=== PATIENT | female | born 2000 | race Two or more races ===

== ENCOUNTER 2024-03-24 20:28 | Emergency (ER) | payer OTHER ==
[~2024-03-24] VITALS: Ht 172.7 cm; Wt 96.6 kg
[2024-03-24] MEDS ORDERED: PRENATABS RX T1 EACH (20:46)
[2024-03-24] MEDS ORDERED: TERCONAZOLE20 GM VAG (21:16)
[2024-03-24] MEDS ORDERED: FLUCONAZOLE150 MG PO (21:16)
== END 2024-03-24 21:36 | disposition home or self-care (01) ==
LOC: ER 20:30
DX: O23.591 Infection of other part of genital tract in pregnancy, first trimester (principal); Z3A.08 8 weeks gestation of pregnancy

== ENCOUNTER 2024-04-25 14:58 | Outpatient (CLI) | payer OTHER ==
[~2024-04-25 14:58] MED LIST: FLUCONAZOLE150 MG PO; PRENATABS RX T1 EACH; TERCONAZOLE20 GM VAG
== END 2024-04-25 14:59 | disposition home or self-care (01) ==
LOC: LAB 14:58
PROVIDERS: ATTEND Specialist
DX: L02.91 Cutaneous abscess, unspecified (principal)

== ENCOUNTER 2024-05-24 13:40 | Outpatient (CLI) | payer OTHER | END 2024-05-24 13:41 | disposition home or self-care (01) | LOC: LAB 13:40 | PROVIDERS: ATTEND Specialist | DX: L02.91 Cutaneous abscess, unspecified (principal) ==

== ENCOUNTER → 2024-06-23 14:27 | Outpatient (CLI) | payer OTHER | END | disposition home or self-care (01) | LOC: PRENATAL 14:27 | PROVIDERS: ATTEND Obstetrics & Gynecology Maternal & Fetal Medicine | DX: O44.00 Complete placenta previa NOS or without hemorrhage, unspecified trimester (principal); O10.019 Pre-existing essential hypertension complicating pregnancy, unspecified trimester; O24.419 Gestational diabetes mellitus in pregnancy, unspecified control; O34.219 Maternal care for unspecified type scar from previous cesarean delivery; Z3A.21 21 weeks gestation of pregnancy ==

== ENCOUNTER 2024-08-07 11:13 | Outpatient (CLI) | payer OTHER | END 2024-08-07 11:14 | disposition home or self-care (01) | LOC: PRENATAL 11:13 | PROVIDERS: ATTEND Obstetrics & Gynecology Maternal & Fetal Medicine | DX: O44.00 Complete placenta previa NOS or without hemorrhage, unspecified trimester (principal); O10.019 Pre-existing essential hypertension complicating pregnancy, unspecified trimester; O24.419 Gestational diabetes mellitus in pregnancy, unspecified control; O34.219 Maternal care for unspecified type scar from previous cesarean delivery; Z3A.29 29 weeks gestation of pregnancy ==

== ENCOUNTER 2024-09-06 14:42 | Outpatient (CLI) | payer OTHER | END 2024-09-06 14:43 | disposition home or self-care (01) | LOC: PRENATAL 14:42 | PROVIDERS: ATTEND Obstetrics & Gynecology Maternal & Fetal Medicine | DX: O44.00 Complete placenta previa NOS or without hemorrhage, unspecified trimester (principal); O10.019 Pre-existing essential hypertension complicating pregnancy, unspecified trimester; O24.419 Gestational diabetes mellitus in pregnancy, unspecified control; O34.219 Maternal care for unspecified type scar from previous cesarean delivery; Z3A.34 34 weeks gestation of pregnancy ==

== ENCOUNTER → 2024-10-04 14:47 | Outpatient (CLI) | payer OTHER | END | disposition home or self-care (01) | LOC: PRENATAL 14:47 | PROVIDERS: ATTEND Obstetrics & Gynecology Maternal & Fetal Medicine | DX: O44.00 Complete placenta previa NOS or without hemorrhage, unspecified trimester (principal); O10.019 Pre-existing essential hypertension complicating pregnancy, unspecified trimester; O24.419 Gestational diabetes mellitus in pregnancy, unspecified control; O34.219 Maternal care for unspecified type scar from previous cesarean delivery; Z3A.37 37 weeks gestation of pregnancy ==

== ENCOUNTER 2024-10-16 10:15 | Inpatient (IN) | payer OTHER ==
[~2024-10-16] VITALS: Ht 172.7 cm; Wt 4.1 kg
[2024-10-16 13:12] LABS: HEMATOCRIT 32.9 % (36.0-45.00); MEAN CELL VOLUME 77.1 fL (80.00-100.00); MEAN CORPUSCULAR HEMOGLOBIN 25.8 pg (27.00-32.0); MEAN CORPUSCULAR HGB CONC 33.4 g/dl (32.0-36.0); RED BLOOD COUNT 4.26 M/uL (4.00-6.00); RED CELL DISTRIBUTION WIDTH 19.5 % (11.5-14.5)
[2024-10-16 13:20] LABS: PLATELET COUNT 64 K/uL (150-450)
[2024-10-16 13:21] LABS: PH,URINE 7.5 (5.0-8.0); URINE APPEARANCE Clear; URINE BILIRRUBIN Negative (NEGATIVE); URINE BLOOD Negative; URINE COLOR Dark Yellow; URINE GLUCOSE Negative (NEGATIVE); URINE KETONE Trace (NEGATIVE); URINE LEUKOCYTE Small; URINE NITRATE Negative; URINE PROTEIN Trace (NEGATIVE)
[2024-10-16 13:23] LABS: URINE BACTERIA 5195.7 uL (0.0-1933); URINE EPITHELIAL CELLS 80.1 uL (0.0-38.8); URINE RBC 8.6 uL (0.0-20.8); URINE WBC 46.5 uL (0.0-23.2)
[2024-10-16 13:38] LABS: INR 0.95; PARTIAL THROMBOPLASTIN TIME 28.6 SECONDS (22.0-34.0); PROTHROMBIN TIME 10.4 SECONDS (9.0-11.5)
[2024-10-16] MEDS ORDERED: LABETALOL HCL200 MG PO (14:00)
[2024-10-16] MEDS ORDERED: MILLIPRED5 MG PO (14:01)
[2024-10-16 15:26] LABS: RH POSITIVE
[2024-10-18 10:10] VITALS: BP 138/80
[2024-10-18] MEDS ORDERED: CEFOXITIN SODIUM 2,000 MG VIAL IV ONE (12:17)
[2024-10-18] MEDS ORDERED: ERYTHROMYCIN BASE OPHT 1GM EACH TUBE OP ONE ×2 (14:16→14:38)
[2024-10-18] MEDS ORDERED: OXYTOCIN 10 UNITS/ML VIAL ONE ×3 (14:16→19:24)
[2024-10-18] MEDS ORDERED: KETOROLAC TROMETHAMINE 60 MG VIAL IM STA (16:56)
[2024-10-18] MEDS ORDERED: OXYTOCIN 1,000 ML IV SCH (17:00)
[2024-10-18] MEDS ORDERED: MORPHINE SULFATE 4 MG/ML VIAL IV PRN (17:00)
[2024-10-18] MEDS ORDERED: CHLORHEXIDINE GLUCONATE 120 ML BOTTLE TP SCH (17:00)
[2024-10-18] MEDS ORDERED: RINGERS SOLUTION,LACTATED 1,000 ML IV SCH (17:00)
[2024-10-18] MEDS ORDERED: MORPHINE SULFATE 4 MG/ML VIAL IV ONE ×2 (17:25→17:55)
[2024-10-18] MEDS ORDERED: KETOROLAC TROMETHAMINE 60 MG VIAL IM ONE (19:00)
[2024-10-18 19:50] VITALS: BP 160/82
[2024-10-18 21:05] LABS: HEMATOCRIT 32.4 % (36.0-45.00); HEMOGLOBIN 10.2 g/dL (12.0-15.00); MEAN CORPUSCULAR HGB CONC 31.6 g/dl (32.0-36.0); PLATELET COUNT 70 K/uL (150-450); RED CELL DISTRIBUTION WIDTH 19.7 % (11.5-14.5)
[2024-10-19] VITALS: BP 139/79
[2024-10-19] MEDS ORDERED: ACETAMINOPHEN WITH CODEINE 1 UDTAB TABLET PO SCH (09:00)
[2024-10-19 09:19] VITALS: BP 140/85
[2024-10-19 16:11] VITALS: BP 149/89
[2024-10-19] MEDS ORDERED: LABETALOL HCL 200 MG TABLET PO SCH (18:30)
[2024-10-20 00:43] VITALS: BP 147/84
[2024-10-20 04:47] VITALS: BP 136/83
[2024-10-20 09:15] VITALS: BP 140/85
[2024-10-20 15:52] VITALS: BP 136/88
[2024-10-21] VITALS: BP 143/80
[2024-10-21] MEDS ORDERED: IBUPROFEN800 MG PO (09:28)
[2024-10-21 10:15] VITALS: BP 145/85
== END 2024-10-21 14:11 | disposition home or self-care (01) | DRG 787 ==
LOC: OB/GYN 10-18 09:32 → O/R 10-18 09:32 → OB/GYN 10-18 17:46 → LDR 11-05 10:15
PROVIDERS: ADMIT Obstetrics & Gynecology; ATTEND Obstetrics & Gynecology
PROC: 4A1HXCZ Monitoring of Products of Conception, Cardiac Rate, External Approach (ICD-10-PCS; 2024-10-18)
PROC: 10D00Z1 Extraction of Products of Conception, Low, Open Approach (ICD-10-PCS; principal; 2024-10-18 14:45)
DX: O34.211 Maternal care for low transverse scar from previous cesarean delivery (principal); O10.02 Pre-existing essential hypertension complicating childbirth; O99.12 Other diseases of the blood and blood-forming organs and certain disorders involving the immune mechanism complicating childbirth; D69.6 Thrombocytopenia, unspecified; O36.63X0 Maternal care for excessive fetal growth, third trimester, not applicable or unspecified; Z3A.38 38 weeks gestation of pregnancy; Z37.0 Single live birth

== ENCOUNTER 2025-01-01 14:05 | Outpatient (CLI) | payer OTHER ==
[~2025-01-01 14:05] MED LIST changes: +IBUPROFEN800 MG PO; +LABETALOL HCL200 MG PO; +MILLIPRED5 MG PO
== END 2025-01-01 14:08 | disposition home or self-care (01) ==
LOC: LAB 14:05
PROVIDERS: ATTEND Specialist
DX: L02.91 Cutaneous abscess, unspecified (principal)